=== PATIENT | male | born 1935 | race Two or more races ===

== ENCOUNTER 2019-02-07 09:35 | Day surgery (SDC) | payer OTHER ==
[~2019-02-07 09:35] MED LIST: AMILODIPINE PO; ARICEPT5 MG PO; BENZEPRIL PO; CHLOTHALIDONE PO; CRESTOR10 MG PO; FINESTERIDE PO; METFOR PO; TAMS0.4C PO
== END 2019-02-07 16:30 | disposition home or self-care (01) ==
LOC: CIR.AMB 09:35
DX: C60.1 Malignant neoplasm of glans penis (principal)